=== PATIENT | male | born 1990 | race African-American/Black ===

== ENCOUNTER 2021-02-22 08:36 | Emergency (ER) | payer OTHER ==
[~2021-02-22] VITALS: Ht 162.6 cm; Wt 75.5 kg
[2021-02-22] MEDS ORDERED: IBUP-1022 PO (09:36)
[2021-02-22] MEDS ORDERED: CETI10CA2 PO (09:36)
[2021-02-22] MEDS ORDERED: ACETAMINOPHEN 500 MG TAB PO ONE (09:55)
--- NOTE | 2021-02-22 10:50 | REP ---
INDICATION: LT BREAST, R/O ABSCESS 2 O CLOCK. COMPARISON: None TECHNIQUE: Real-time sonographic evaluation of left breast performed. FINDINGS: In the left retroareolar region there is ill-defined heterogeneous echotexture with some degree of hyperemia with Doppler evaluation. This is likely due to inflammatory change and/or gynecomastia in this region. No abscess collection is seen. IMPRESSION: BIRADS/ACR category 3, probably benign. Ill-defined hyperemic retroareolar tissue likely indicates inflammatory change and/or gynecomastia. No abscess collection is seen. RECOMMENDATION: Clinical correlation and follow-up recommended. If there is clinical concern for underlying left breast mass, recommend follow-up left breast mammogram and ultrasound. <Electronically signed by Michael Clark > 02/22/21 [id number]
[2021-02-22 11:15] VITALS: BP 122/82
--- NOTE | 2021-02-22 14:51 | ED PDOC ---
Post-Departure Follow-Up breast us faxed lolly moura, maggy ruiz for fu Zoraida Dumont MD Feb 22, 2021 14:51
== END 2021-02-22 11:17 | disposition home or self-care (01) ==
LOC: M ED 08:36
DX: N64.89 Other specified disorders of breast (principal); D75.A Glucose-6-phosphate dehydrogenase (G6PD) deficiency without anemia

== ENCOUNTER 2021-05-07 12:32 | Emergency (ER) | payer OTHER ==
[~2021-05-07] VITALS: Ht 162.6 cm; Wt 75.0 kg
[~2021-05-07 12:32] MED LIST: CETI10CA2 PO; IBUP-1022 PO
[2021-05-07] MEDS ORDERED: NS 1,000 ML IV ONE (13:55)
[2021-05-07] MEDS ORDERED: ACETAMINOPHEN 500 MG TAB PO ONE (13:55)
[2021-05-07] MEDS ORDERED: METOCLOPRAMIDE INJ 10MG/2ML VIAL (J2765 PER 1) IV ONE (13:55)
--- NOTE | 2021-05-07 14:26 | REP ---
INDICATION: intermittent HESTER, dizziness, x 5 days. COMPARISON: None. TECHNIQUE: 5 x 5 mm contiguous helical transaxial sections were obtained from the skull base to the cerebral convexities with coronal reconstruction FINDINGS: The ventricles and sulci are consistent with the patient's age. There are no extra-axial fluid collections. There is no mass effect. In the region of the putamen on the right there is a 1 cm sized focal area of increased density. The deep white matter is otherwise unremarkable. The orbital and petrous structures, cerebellopontine angles, and posterior fossa are unremarkable. The sella turcica, cavernous, and paracavernous structures are essentially unremarkable. The visualized portions of the paranasal sinuses and mastoid air cells are clear. Images of the skull base show no gross abnormality. IMPRESSION: Area of increased parenchymal density in the putamen on the right as described above. The finding is suspicious for an intracranial hemorrhage. Follow-up with MRI is recommended. Phone call was placed to the emergency department in this finding was discussed with Dr. Castellon. <Electronically signed by Denver Fisher > 05/07/21 [id number]
[2021-05-07 15:08] LABS: HEMATOCRIT 43.5 % (42.0-52.0); HEMOGLOBIN 13.6 g/dl (13.5-17.5); MEAN CORPUSCULAR HEMOGLOBIN 27.9 pg (27.0-33.0); MEAN CORPUSCULAR HGB CONC 31.3 g/dl (32.0-36.5); MEAN CORPUSCULAR VOLUME 89.1 fl (80.0-96.0); PLATELET COUNT, AUTOMATED 223 10^3/uL (150-450); RED BLOOD COUNT 4.88 10^6/uL (4.30-6.10); WHITE BLOOD COUNT 4.3 10^3/uL (4.0-10.0)
[2021-05-07 15:22] LABS: INR 1.06; PROTHROMBIN TIME 14.2 SECONDS (12.7-14.5)
[2021-05-07 15:23] LABS: PARTIAL THROMBOPLASTIN TIME 29.5 SECONDS (25.9-37.0)
[2021-05-07 15:26] LABS: BLOOD UREA NITROGEN 10 MG/DL (7-18); CALCIUM LEVEL 8.9 MG/DL (8.5-10.1); CARBON DIOXIDE LEVEL 26 MEQ/L (21-32); CHLORIDE LEVEL 107 MEQ/L (98-107); CREATININE FOR GFR 1.25 MG/DL (0.70-1.30); GLOMERULAR FILTRATION RATE > 60.0 (>60); GLUCOSE, FASTING 86 MG/DL (70-100); POTASSIUM SERUM 3.8 MEQ/L (3.5-5.1); SODIUM LEVEL 138 MEQ/L (136-145)
[2021-05-07 16:01] LABS: RSV AMPLIFICATION NEGATIVE (NEGATIVE)
[2021-05-07 16:57] VITALS: BP 103/53
== END 2021-05-07 17:00 | disposition short-term general hospital (02) ==
LOC: M ED 12:32
DX: R51.9 Headache, unspecified (principal); D75.A Glucose-6-phosphate dehydrogenase (G6PD) deficiency without anemia; Z86.69 Personal history of other diseases of the nervous system and sense organs
CPT/HCPCS: 70450; 80048; 85027; 85610; 85730; 86140; 86850; 86900; 86901; 87631; 96361; 96374; 99284; J2765

== ENCOUNTER 2021-05-11 14:33 | Emergency (ER) | payer OTHER ==
[~2021-05-11] VITALS: Ht 162.6 cm; Wt 75.2 kg
[2021-05-11] MEDS ORDERED: BUTA-198 (14:43)
[2021-05-11] MEDS ORDERED: PRED10TA2 (14:43)
[2021-05-11] MEDS ORDERED: GI COCKTAIL 50ML BTL(HYOSCYAMINE/MAALOX/LIDOCAINE VISCOUS)(1:3:1) PO ONE (17:30)
[2021-05-11] MEDS ORDERED: OMEPRAZOLE 20 MG CAP PO ONE (17:30)
[2021-05-11] MEDS ORDERED: BACLOFEN 10 MG TAB PO ONE (18:00)
[2021-05-11] MEDS ORDERED: OMEP40CA4 PO ×2 (18:04→18:15)
[2021-05-11] MEDS ORDERED: CARA1TAB6 PO ×2 (18:04→18:15)
[2021-05-11] MEDS ORDERED: BACL10TA2 PO ×2 (18:04→18:15)
[2021-05-11] MEDS ORDERED: diphenhydrAMINE 25MG CAP PO ONE (18:15)
[2021-05-11 18:17] VITALS: BP 118/65
== END 2021-05-11 18:20 | disposition home or self-care (01) ==
LOC: M ED 14:33
DX: R06.6 Hiccough (principal); D75.A Glucose-6-phosphate dehydrogenase (G6PD) deficiency without anemia; Z86.69 Personal history of other diseases of the nervous system and sense organs

== ENCOUNTER 2021-05-30 13:47 | Emergency (ER) | payer OTHER ==
[~2021-05-30] VITALS: Ht 162.6 cm; Wt 75.6 kg
[2021-05-30 13:47] VITALS: BP 120/76
[~2021-05-30 13:47] MED LIST changes: +BACL10TA2 PO; +BUTA-198; +CARA1TAB6 PO; +OMEP40CA4 PO; +PRED10TA2
--- NOTE | 2021-05-30 15:32 | REP ---
INDICATION: NEURO. COMPARISON: 05/07/2021. TECHNIQUE: CT brain performed in the axial plane. Coronal reconstruction images are performed. FINDINGS: The ventricles are normal in size and position.. There is no midline shift or mass effect. Clark-white differentiation is well maintained. Once again there is mild hyperdensity in the right basal ganglia region. This is stable when compared to the prior study. This most likely represents mild basal ganglia calcification. No other abnormal density is seen. There is no extra-axial fluid collection. Bony calvarium is intact. There is mild mucosal thickening in the posterior left ethmoid sinuses. IMPRESSION: Mild hyperdensity in the right basal ganglia is stable compared to the prior CT of 05/07/2021. the findings are therefore most consistent with mild basal ganglia calcification. No acute findings are seen. There is mild mucosal thickening in the posterior left ethmoid sinuses. <Electronically signed by Michael Clark > 05/30/21 [id number]
[2021-05-30] MEDS ORDERED: AMIT25TA17 PO (19:36)
== END 2021-05-30 19:45 | disposition home or self-care (01) ==
LOC: M ED 13:47
DX: R51.9 Headache, unspecified (principal); H57.12 Ocular pain, left eye; Z79.899 Other long term (current) drug therapy; Z88.8 Allergy status to other drugs, medicaments and biological substances

== ENCOUNTER 2021-06-28 06:26 | Emergency (ER) | payer OTHER ==
[~2021-06-28] VITALS: Ht 162.6 cm; Wt 76.4 kg
[~2021-06-28 06:26] MED LIST changes: +AMIT25TA17 PO
[2021-06-28] MEDS ORDERED: TOPA50TA8 PO (06:32)
[2021-06-28] MEDS ORDERED: RIZA10TA58 PO (06:32)
[2021-06-28] MEDS ORDERED: ACETAMINOPHEN 500 MG TAB PO ONE (10:20)
[2021-06-28] MEDS ORDERED: NS 1,000 ML IV ONE (10:20)
[2021-06-28] MEDS ORDERED: METOCLOPRAMIDE INJ 10MG/2ML VIAL (J2765 PER 1) IV ONE (10:20)
--- NOTE | 2021-06-28 10:42 | REP ---
INDICATION: sev L sided parietal pain, dizziness, vision changes. COMPARISON: Comparison CT studies are reviewed from May 30, 2021 and May 07, 2021. TECHNIQUE: Helical scanning is acquired. 5 mm axial images were reformatted. Coronal MPR images were generated. FINDINGS: Preliminary digital manager business continuity radiograph is unremarkable. Bone window settings demonstrate intact bony calvarium. Visualized paranasal sinuses are clear. No intraorbital abnormality is appreciated. Lateral, 3rd, and 4th ventricles are normal in size and position. There is no evidence of intracranial hemorrhage, infarct, mass or midline shift. There is mild increased density pattern in the basal ganglia bilaterally consistent with physiologic calcification. This is unchanged from the May 07, 2021 study. IMPRESSION: Negative noncontrast head CT. <Electronically signed by Tomas Rodriguez > 06/28/21 [id number]
[2021-06-28 10:53] LABS: BASO % 0.5 % (0.0-1.0); EOS % 0.7 % (0.0-3.0); HEMATOCRIT 45.2 % (42.0-52.0); HEMOGLOBIN 14.7 g/dl (13.5-17.5); LYMPH # 1.9 10^3/uL (1.5-5.0); LYMPH % 43.4 % (24.0-44.0); MEAN CORPUSCULAR HGB CONC 32.5 g/dl (32.0-36.5); MEAN CORPUSCULAR VOLUME 86.1 fl (80.0-96.0); MONO # 0.4 10^3/uL (0.0-0.8); MONO % 9.3 % (2.0-8.0); NEUTROPHILS % 45.9 % (36.0-66.0); PLATELET COUNT, AUTOMATED 229 10^3/uL (150-450); RED BLOOD COUNT 5.25 10^6/uL (4.30-6.10); WHITE BLOOD COUNT 4.4 10^3/uL (4.0-10.0)
[2021-06-28 11:13] LABS: INR 0.98; PROTHROMBIN TIME 13.4 SECONDS (12.7-14.5)
[2021-06-28 11:36] LABS: BLOOD UREA NITROGEN 16 MG/DL (7-18); CALCIUM LEVEL 9.6 MG/DL (8.5-10.1); CARBON DIOXIDE LEVEL 25 MEQ/L (21-32); CHLORIDE LEVEL 106 MEQ/L (98-107); CREATININE FOR GFR 1.39 MG/DL (0.70-1.30); GLOMERULAR FILTRATION RATE > 60.0 (>60); GLUCOSE, FASTING 94 MG/DL (70-100); POTASSIUM SERUM 5.3 MEQ/L (3.5-5.1); SODIUM LEVEL 137 MEQ/L (136-145)
[2021-06-28 12:20] VITALS: BP 158/69
== END 2021-06-28 12:36 | disposition home or self-care (01) ==
LOC: M ED 06:26
DX: G43.909 Migraine, unspecified, not intractable, without status migrainosus (principal); D55.0 Anemia due to glucose-6-phosphate dehydrogenase [G6PD] deficiency; Z86.69 Personal history of other diseases of the nervous system and sense organs; Z86.73 Personal history of transient ischemic attack (TIA), and cerebral infarction without residual deficits
CPT/HCPCS: 70450; 80047; 80048; 85025; 85610; 85730; 96361; 96374; 99284; J2765

== ENCOUNTER 2021-11-07 20:12 | Emergency (ER) | payer OTHER ==
[~2021-11-07] VITALS: Ht 162.6 cm; Wt 81.7 kg
[~2021-11-07 20:12] MED LIST changes: +GABAPENTIN PO; +HYDR-3363 PO; +LEXA1TAB2 PO; +MAXA10TA14 PO; +MECL-86 PO; +OLAN1TAB16 PO; +RAME8TAB2 PO; +RIZA10TA58 PO; +RIZA5TAB2 PO; +TOPA50TA8 PO; +TOPI50TA9 PO; +TRAZ-252 PO
[2021-11-07 20:13] VITALS: BP 125/69
[2021-11-07] MEDS ORDERED: ACETAMINOPHEN 325 MG TAB PO ONE (20:45)
[2021-11-07] MEDS ORDERED: KETOROLAC 60MG 2ML VIAL IM ONE (20:45)
[2021-11-07] MEDS ORDERED: MEDR4PAK PO (21:06)
== END 2021-11-07 21:12 | disposition home or self-care (01) ==
LOC: M ED 20:12
DX: S39.012A Strain of muscle, fascia and tendon of lower back, initial encounter (principal); X58.XXXA Exposure to other specified factors, initial encounter; Y92.89 Other specified places as the place of occurrence of the external cause; M54.42 Lumbago with sciatica, left side; D75.A Glucose-6-phosphate dehydrogenase (G6PD) deficiency without anemia; Z79.899 Other long term (current) drug therapy
CPT/HCPCS: 96372; 99282; J1885

== ENCOUNTER 2021-11-21 05:34 | Emergency (ER) | payer OTHER ==
[~2021-11-21] VITALS: Ht 162.6 cm; Wt 79.5 kg
[~2021-11-21 05:34] MED LIST changes: +MEDR4PAK PO
[2021-11-21] MEDS ORDERED: CETI-24 (06:25)
[2021-11-21] MEDS ORDERED: ACETAMINOPHEN 325 MG TAB PO ONE ×2 (06:25→06:55)
[2021-11-21] MEDS ORDERED: PHENAZOPYRIDINE 100 MG TAB PO ONE (06:25)
[2021-11-21] MEDS ORDERED: HYDR-4570 (06:25)
[2021-11-21] MEDS ORDERED: SILD100T (06:25)
[2021-11-21 06:47] LABS: APPEARANCE, URINE HAZY (CLEAR); BACTERIA, URINE AUTO NEGATIVE (NEGATIVE); BILIRUBIN, URINE AUTO NEGATIVE (NEGATIVE); BLOOD, URINE BLOOD 2+ (NEGATIVE); COLOR, URINE YELLOW (YELLOW); GLUCOSE, URINE (UA) AUTO NEGATIVE (NEGATIVE); KETONE, URINE AUTO NEGATIVE (NEGATIVE); LEUKOCYTE ESTERASE, URINE AUTO NEGATIVE (NEGATIVE); MUCUS, URINE SMALL (NEGATIVE); NITRITE, URINE AUTO NEGATIVE (NEGATIVE); PROTEIN, URINE AUTO 3+ mg/dL (NEGATIVE); RBC, URINE AUTO 127 /HPF (0-3); SPECIFIC GRAVITY URINE AUTO 1.019 (1.002-1.035); SQUAMOUS EPITHELIAL CELL UR AU 1 /HPF (0-6); TRANSITIONAL EPITHELIAL AUTO 4 /HPF; UROBILINOGEN, URINE AUTO 0.2 mg/dL (0.0-2.0); WBC, URINE AUTO 12 /HPF (0-3)
[2021-11-21] MEDS ORDERED: NS 500 ML IV ONE (07:00)
[2021-11-21 07:44] LABS: BASO % 0.4 % (0.0-1.0); EOS % 0.9 % (0.0-3.0); HEMATOCRIT 43.4 % (42.0-52.0); HEMOGLOBIN 13.6 g/dl (13.5-17.5); LYMPH # 1.6 10^3/uL (1.5-5.0); LYMPH % 35.6 % (24.0-44.0); MEAN CORPUSCULAR HEMOGLOBIN 27.6 pg (27.0-33.0); MEAN CORPUSCULAR HGB CONC 31.3 g/dl (32.0-36.5); MEAN CORPUSCULAR VOLUME 88.2 fl (80.0-96.0); MONO # 0.5 10^3/uL (0.0-0.8); MONO % 11.6 % (2.0-8.0); NEUTROPHILS # 2.3 10^3/uL (1.5-8.5); NEUTROPHILS % 50.8 % (36.0-66.0); PLATELET COUNT, AUTOMATED 248 10^3/uL (150-450); RED BLOOD COUNT 4.92 10^6/uL (4.30-6.10); WHITE BLOOD COUNT 4.5 10^3/uL (4.0-10.0)
[2021-11-21 09:15] LABS: GC DNA AMPLIFICATION NEGATIVE (NEGATIVE)
[2021-11-21] MEDS ORDERED: CEPH500C PO (09:22)
[2021-11-21] MEDS ORDERED: CEPHALEXIN 500 MG CAP PO ONE (09:30)
[2021-11-21 09:37] LABS: BILIRUBIN,DIRECT 0.1 MG/DL (0.0-0.2); BILIRUBIN,TOTAL 0.6 MG/DL (0.2-1.0); TOTAL PROTEIN 7.8 GM/DL (6.4-8.2)
[2021-11-21 09:50] VITALS: BP 115/68
== END 2021-11-21 09:50 | disposition home or self-care (01) ==
LOC: M ED 05:34
DX: N39.0 Urinary tract infection, site not specified (principal); F41.9 Anxiety disorder, unspecified; D75.A Glucose-6-phosphate dehydrogenase (G6PD) deficiency without anemia; Z86.69 Personal history of other diseases of the nervous system and sense organs; Z79.899 Other long term (current) drug therapy

== ENCOUNTER 2021-11-26 18:31 | Emergency (ER) | payer OTHER ==
[~2021-11-26] VITALS: Ht 162.6 cm; Wt 81.2 kg
[~2021-11-26 18:31] MED LIST changes: +CEPH500C PO; +CETI-24; +HYDR-4570; +SILD100T
[2021-11-26] MEDS ORDERED: SUMA100T2 PO (18:38)
[2021-11-26 21:34] LABS: BASO % 0.3 % (0.0-1.0); EOS # 0.1 10^3/uL (0.0-0.5); EOS % 0.8 % (0.0-3.0); HEMATOCRIT 40.1 % (42.0-52.0); HEMOGLOBIN 12.7 g/dl (13.5-17.5); LYMPH # 1.8 10^3/uL (1.5-5.0); LYMPH % 24.8 % (24.0-44.0); MEAN CORPUSCULAR HEMOGLOBIN 27.5 pg (27.0-33.0); MEAN CORPUSCULAR HGB CONC 31.7 g/dl (32.0-36.5); MONO # 0.6 10^3/uL (0.0-0.8); MONO % 7.8 % (2.0-8.0); NEUTROPHILS # 4.7 10^3/uL (1.5-8.5); NEUTROPHILS % 65.9 % (36.0-66.0); PLATELET COUNT, AUTOMATED 251 10^3/uL (150-450); RED BLOOD COUNT 4.61 10^6/uL (4.30-6.10); WHITE BLOOD COUNT 7.1 10^3/uL (4.0-10.0)
[2021-11-26 21:53] LABS: ERYTHROCYTE SEDIMENTATION RATE 6 mm/hr (0-15)
[2021-11-26] MEDS ORDERED: NS 1,000 ML IV ONE (22:05)
[2021-11-26] MEDS ORDERED: diphenhydrAMINE 50MG/ML VIAL (J1200) IV ONE (22:05)
[2021-11-26] MEDS ORDERED: ACETAMINOPHEN 500 MG TAB PO ONE (22:05)
[2021-11-26 22:22] LABS: BLOOD UREA NITROGEN 12 MG/DL (7-18); CALCIUM LEVEL 8.9 MG/DL (8.5-10.1); CARBON DIOXIDE LEVEL 27 MEQ/L (21-32); CHLORIDE LEVEL 108 MEQ/L (98-107); CREATININE FOR GFR 1.16 MG/DL (0.70-1.30); GLOMERULAR FILTRATION RATE > 60.0 (>60); GLUCOSE, FASTING 98 MG/DL (70-100); POTASSIUM SERUM 4.3 MEQ/L (3.5-5.1); SODIUM LEVEL 138 MEQ/L (136-145)
[2021-11-27 01:13] VITALS: BP 115/58
== END 2021-11-27 01:15 | disposition home or self-care (01) ==
LOC: M ED 18:31
DX: G43.909 Migraine, unspecified, not intractable, without status migrainosus (principal); G89.29 Other chronic pain; M54.9 Dorsalgia, unspecified; M25.552 Pain in left hip; D75.A Glucose-6-phosphate dehydrogenase (G6PD) deficiency without anemia; Z86.69 Personal history of other diseases of the nervous system and sense organs; Z79.899 Other long term (current) drug therapy
CPT/HCPCS: 70450; 73502; 80048; 85025; 85652; 86140; 96361; 96374; 99284; J1200

== ENCOUNTER 2021-12-15 01:38 | Emergency (ER) | payer OTHER ==
[~2021-12-15] VITALS: Ht 162.6 cm; Wt 79.5 kg
[~2021-12-15 01:38] MED LIST changes: +SUMA100T2 PO
[2021-12-15] MEDS ORDERED: ACETAMINOPHEN 500 MG TAB PO ONE (06:00)
[2021-12-15] MEDS ORDERED: diphenhydrAMINE 50MG/ML VIAL (J1200) IV ONE (06:00)
[2021-12-15] MEDS ORDERED: NS 1,000 ML IV ONE (06:00)
[2021-12-15 06:17] LABS: RSV AMPLIFICATION NEGATIVE (NEGATIVE)
[2021-12-15 06:25] LABS: HEMATOCRIT 39.9 % (42.0-52.0); HEMOGLOBIN 12.8 g/dl (13.5-17.5); MEAN CORPUSCULAR HGB CONC 32.1 g/dl (32.0-36.5); MEAN CORPUSCULAR VOLUME 87.3 fl (80.0-96.0); PLATELET COUNT, AUTOMATED 263 10^3/uL (150-450); RED BLOOD COUNT 4.57 10^6/uL (4.30-6.10); WHITE BLOOD COUNT 4.5 10^3/uL (4.0-10.0)
[2021-12-15 07:23] VITALS: BP 112/74
== END 2021-12-15 07:36 | disposition home or self-care (01) ==
LOC: M ED 01:38
DX: G89.29 Other chronic pain (principal); M54.50 Low back pain, unspecified; R51.9 Headache, unspecified; J02.9 Acute pharyngitis, unspecified; D75.A Glucose-6-phosphate dehydrogenase (G6PD) deficiency without anemia; N52.9 Male erectile dysfunction, unspecified; Z86.69 Personal history of other diseases of the nervous system and sense organs; Z86.73 Personal history of transient ischemic attack (TIA), and cerebral infarction without residual deficits; Z79.899 Other long term (current) drug therapy
CPT/HCPCS: 80047; 85027; 87631; 96374; 99283; J1200

== ENCOUNTER 2022-01-28 14:59 | Emergency (ER) | payer OTHER ==
[~2022-01-28] VITALS: Ht 162.6 cm; Wt 79.5 kg
[2022-01-28] MEDS ORDERED: OMEP40CA5 (15:28)
[2022-01-28] MEDS ORDERED: GABA-1171 (15:28)
[2022-01-28] MEDS ORDERED: TOPI100T9 (15:28)
[2022-01-28] MEDS ORDERED: PROP10TA56 (15:28)
[2022-01-28] MEDS ORDERED: OLAN1TAB20 (15:28)
[2022-01-28] MEDS ORDERED: KETOROLAC 60MG 2ML VIAL IM ONE (20:45)
[2022-01-28 21:16] VITALS: BP 124/67
== END 2022-01-28 21:59 | disposition home or self-care (01) ==
LOC: M ED 14:59
DX: M54.50 Low back pain, unspecified (principal); I10 Essential (primary) hypertension; K21.9 Gastro-esophageal reflux disease without esophagitis; Z86.69 Personal history of other diseases of the nervous system and sense organs; D75.A Glucose-6-phosphate dehydrogenase (G6PD) deficiency without anemia; Z79.899 Other long term (current) drug therapy
CPT/HCPCS: 96372; 99283; J1885

== ENCOUNTER → 2022-01-31 | Outpatient (REF) | payer OTHER ==
[~2022-01-31] MED LIST changes: +BACT800T5 PO; +GABA-1171; +HYDR-3713 PO; +OLAN1TAB20; +OMEP40CA5; +PROP10TA56; +TOPI100T9
[2022-01-31 17:47] LABS: APPEARANCE, URINE CLEAR (CLEAR); BACTERIA, URINE AUTO NEGATIVE (NEGATIVE); BILIRUBIN, URINE AUTO NEGATIVE (NEGATIVE); BLOOD, URINE BLOOD NEGATIVE (NEGATIVE); COLOR, URINE YELLOW (YELLOW); GLUCOSE, URINE (UA) AUTO NEGATIVE (NEGATIVE); KETONE, URINE AUTO NEGATIVE (NEGATIVE); LEUKOCYTE ESTERASE, URINE AUTO NEGATIVE (NEGATIVE); MUCUS, URINE SMALL (NEGATIVE); NITRITE, URINE AUTO NEGATIVE (NEGATIVE); PROTEIN, URINE AUTO NEGATIVE (NEGATIVE); RBC, URINE AUTO 0 /HPF (0-3); SQUAMOUS EPITHELIAL CELL UR AU 0 /HPF (0-6); UROBILINOGEN, URINE AUTO 0.2 mg/dL (0.0-2.0); WBC, URINE AUTO 0 /HPF (0-3)
== END ==
LOC: M SMT 16:44
PROVIDERS: ATTEND Nurse Practitioner Women's Health
DX: R30.0 Dysuria (principal)

== ENCOUNTER → 2022-02-06 | Outpatient (CLI) | payer OTHER ==
[2022-02-06 17:27] LABS: HEMATOCRIT 42.5 % (42.0-52.0); HEMOGLOBIN 13.5 g/dl (13.5-17.5); MEAN CORPUSCULAR HGB CONC 31.8 g/dl (32.0-36.5); MEAN CORPUSCULAR VOLUME 88.2 fl (80.0-96.0); PLATELET COUNT, AUTOMATED 211 10^3/uL (150-450); RED BLOOD COUNT 4.82 10^6/uL (4.30-6.10); WHITE BLOOD COUNT 4.2 10^3/uL (4.0-10.0)
[2022-02-06 17:36] LABS: INR 0.99; PROTHROMBIN TIME 13.5 SECONDS (12.7-14.5)
[2022-02-06 17:37] LABS: PARTIAL THROMBOPLASTIN TIME 27.4 SECONDS (25.9-37.0)
[2022-02-06 17:53] LABS: BLOOD UREA NITROGEN 11 MG/DL (7-18); CALCIUM LEVEL 9.4 MG/DL (8.5-10.1); CARBON DIOXIDE LEVEL 27 MEQ/L (21-32); CHLORIDE LEVEL 106 MEQ/L (98-107); CREATININE FOR GFR 1.17 MG/DL (0.70-1.30); GLOMERULAR FILTRATION RATE > 60.0 (>60); GLUCOSE, FASTING 88 MG/DL (70-100); POTASSIUM SERUM 4.5 MEQ/L (3.5-5.1); SODIUM LEVEL 137 MEQ/L (136-145)
== END ==
LOC: M LAB 16:52
PROVIDERS: ATTEND Nurse Practitioner Women's Health
DX: Z01.818 Encounter for other preprocedural examination (principal); N48.1 Balanitis

== ENCOUNTER 2022-02-07 08:31 | Day surgery (SDC) | payer OTHER ==
[~2022-02-07] VITALS: Ht 162.6 cm; Wt 80.3 kg
[~2022-02-07 08:31] MED LIST changes: -BACT800T5 PO; -HYDR-3713 PO; +ceFAZolin SOD 2 GM in IV 1 EA IV ONE
[2022-02-07] MEDS ORDERED: MIDAZOLAM INJ 2MG/2ML VIAL (J2250 PER 1MG) As Ordered ONE (10:06)
[2022-02-07] MEDS ORDERED: fentaNYL 100 MCG/2 ML INJECTION As Ordered ONE ×2 (10:06→11:46)
[2022-02-07] MEDS ORDERED: LIDOCAINE 2% 100MG/5ML SDV (FOR ANES.) As Ordered ONE (10:07)
[2022-02-07] MEDS ORDERED: ONDANSETRON 4MG/2ML VIAL As Ordered ONE (10:07)
[2022-02-07] MEDS ORDERED: dexameTHASONE 4 MG/ML 1ML VIAL (J1100 PER 1MG) As Ordered ONE (10:07)
[2022-02-07] MEDS ORDERED: propofoL 200 MG/20 ML VIAL As Ordered ONE (10:07)
[2022-02-07] MEDS ORDERED: LIDOCAINE 1% SDV 30ML VIAL As Ordered ONE (11:11)
[2022-02-07] MEDS ORDERED: ACETAMINOPHEN 1000MG 100ML IV BTL (OFIRMEV) (J0131 PER 10MG) As Ordered ONE (11:34)
[2022-02-07] MEDS ORDERED: BACT800T5 PO (12:18)
[2022-02-07] MEDS ORDERED: HYDR-3713 PO (12:18)
[2022-02-07] MEDS ORDERED: HYDROMORPHONE HCL 0.5 MG/ 0.5 ML SYRINGE (J1170 PER 1) IV PRN (12:25)
[2022-02-07] MEDS ORDERED: ONDANSETRON 4MG/2ML VIAL IV PRN (12:25)
[2022-02-07] MEDS ORDERED: LR 1,000 ML IV SCH (12:25)
[2022-02-07] MEDS ORDERED: fentaNYL 100 MCG/2 ML INJECTION IV PRN (12:25)
[2022-02-07] MEDS ORDERED: METOCLOPRAMIDE INJ 10MG/2ML VIAL (J2765 PER 1) IV PRN (12:25)
[2022-02-07] MEDS ORDERED: oxyCODONE 5MG TAB PO PRN (12:25)
[2022-02-07 13:10] VITALS: BP 121/81
== END 2022-02-07 13:47 | disposition home or self-care (01) ==
LOC: M SDC 08:31
PROVIDERS: ATTEND Urology
DX: N47.7 Other inflammatory diseases of prepuce (principal); N48.1 Balanitis; N52.9 Male erectile dysfunction, unspecified; K21.9 Gastro-esophageal reflux disease without esophagitis; F32.A Depression, unspecified; G43.909 Migraine, unspecified, not intractable, without status migrainosus; Z79.899 Other long term (current) drug therapy
CPT/HCPCS: 54161; 88304; J0131; J0690; J1100; J2250; J2405; J3010

== ENCOUNTER → 2022-02-26 | Outpatient (REF) ==
[~2022-02-26] MED LIST changes: +BACT800T5 PO; +HYDR-3713 PO; -ceFAZolin SOD 2 GM in IV 1 EA IV ONE
== END ==
LOC: M PLAIMG 15:09
PROVIDERS: ATTEND Internal Medicine
DX: R06.02 Shortness of breath (principal); R52 Pain, unspecified

== ENCOUNTER → 2022-03-13 | Outpatient (CLI) | payer OTHER ==
[2022-03-13 18:10] LABS: PLATELET COUNT, AUTOMATED 249 10^3/uL (150-450)
[2022-03-13 18:21] LABS: INR 0.94
[2022-03-13 18:22] LABS: PARTIAL THROMBOPLASTIN TIME 30.3 SECONDS (25.9-37.0)
[2022-03-13 18:27] LABS: HCG, SERUM QUALITATIVE NEGATIVE
== END ==
LOC: M LAB 17:10
PROVIDERS: ATTEND Physical Medicine & Rehabilitation
DX: M51.16 Intervertebral disc disorders with radiculopathy, lumbar region (principal)

== ENCOUNTER 2022-03-25 13:39 | Emergency (ER) | payer OTHER ==
[~2022-03-25] VITALS: Ht 162.6 cm; Wt 81.8 kg
[2022-03-25] MEDS ORDERED: ACETAMINOPHEN 325 MG TAB PO ONE (15:35)
[2022-03-25] MEDS ORDERED: NIRM1TAB PO (15:43)
[2022-03-25 15:53] VITALS: O2SAT 99
[2022-03-25 15:54] VITALS: BP 114/68
== END 2022-03-25 16:05 | disposition home or self-care (01) ==
LOC: M ED 13:39
DX: U07.1 COVID-19 (principal); R50.9 Fever, unspecified; R51.9 Headache, unspecified; J02.9 Acute pharyngitis, unspecified; I10 Essential (primary) hypertension; G89.29 Other chronic pain; D75.A Glucose-6-phosphate dehydrogenase (G6PD) deficiency without anemia; Z79.899 Other long term (current) drug therapy

== ENCOUNTER 2022-03-29 16:07 | Emergency (ER) | payer OTHER ==
[~2022-03-29] VITALS: Ht 162.6 cm; Wt 80.0 kg
[~2022-03-29 16:07] MED LIST changes: +NIRM1TAB PO
[2022-03-29 16:09] VITALS: BP 110/71
[2022-03-29] MEDS ORDERED: ONDANSETRON 4MG ORAL DISINTEGRATING TAB PO ONE (17:50)
[2022-03-29] MEDS ORDERED: ONDA4TAB6 PO (17:53)
== END 2022-03-29 18:08 | disposition home or self-care (01) ==
LOC: M ED 16:07
DX: U07.1 COVID-19 (principal); R43.2 Parageusia; I10 Essential (primary) hypertension; F33.9 Major depressive disorder, recurrent, unspecified; D75.A Glucose-6-phosphate dehydrogenase (G6PD) deficiency without anemia; G47.33 Obstructive sleep apnea (adult) (pediatric); K21.9 Gastro-esophageal reflux disease without esophagitis; Z86.69 Personal history of other diseases of the nervous system and sense organs; Z86.73 Personal history of transient ischemic attack (TIA), and cerebral infarction without residual deficits; Z79.899 Other long term (current) drug therapy

== ENCOUNTER → 2022-07-09 | Outpatient (CLI) | payer OTHER ==
[~2022-07-09] MED LIST changes: -MAXA10TA14 PO; +ONDA4TAB6 PO; +RIZA10TA64 PO
== END ==
LOC: M PAIN 08:15
PROVIDERS: ATTEND Nurse Practitioner Family
DX: M79.10 Myalgia, unspecified site (principal); G89.29 Other chronic pain; G43.909 Migraine, unspecified, not intractable, without status migrainosus; I10 Essential (primary) hypertension; G47.30 Sleep apnea, unspecified; Z86.59 Personal history of other mental and behavioral disorders; Z88.2 Allergy status to sulfonamides; Z88.6 Allergy status to analgesic agent; Z79.899 Other long term (current) drug therapy

== ENCOUNTER → 2022-09-30 | Outpatient (CLI) | payer OTHER | LOC: M LABSMTC 11:59 | PROVIDERS: ATTEND Anesthesiology | DX: Z01.812 Encounter for preprocedural laboratory examination (principal); Z20.822 Contact with and (suspected) exposure to COVID-19 ==

== ENCOUNTER → 2022-10-04 | Outpatient (CLI) | payer OTHER ==
[~2022-10-04] MED LIST changes: +BUPIVACAINE HCL 0.25% 10ML VIAL As Ordered ONE; +BUPIVACAINE HCL 0.25% 30ML VIAL As Ordered ONE; +NORCO, ANEXSIA 5/325MG TABLET (HYDROcodone/ACETAMINOPHEN) As Ordered ONE; +TRIAMCINOLONE ACETONIDE SUSP 40MG/ML 1ML VIAL As Ordered ONE; +diazePAM 5MG TABLET As Ordered ONE
== END ==
LOC: M PAIN 08:15
PROVIDERS: ATTEND Anesthesiology
DX: M79.18 Myalgia, other site (principal); K21.9 Gastro-esophageal reflux disease without esophagitis; N52.9 Male erectile dysfunction, unspecified; M72.2 Plantar fascial fibromatosis; F32.A Depression, unspecified; F41.9 Anxiety disorder, unspecified; D64.9 Anemia, unspecified; G47.30 Sleep apnea, unspecified; Z79.899 Other long term (current) drug therapy; Z88.2 Allergy status to sulfonamides; Z88.6 Allergy status to analgesic agent

== ENCOUNTER → 2022-10-18 | Outpatient (CLI) | payer OTHER ==
[~2022-10-18] MED LIST changes: -BUPIVACAINE HCL 0.25% 10ML VIAL As Ordered ONE; -BUPIVACAINE HCL 0.25% 30ML VIAL As Ordered ONE; -NORCO, ANEXSIA 5/325MG TABLET (HYDROcodone/ACETAMINOPHEN) As Ordered ONE; -TRIAMCINOLONE ACETONIDE SUSP 40MG/ML 1ML VIAL As Ordered ONE; -diazePAM 5MG TABLET As Ordered ONE
== END ==
LOC: M PAIN 14:45
PROVIDERS: ATTEND Nurse Practitioner Family
DX: M79.10 Myalgia, unspecified site (principal); G89.29 Other chronic pain; G47.30 Sleep apnea, unspecified; K21.9 Gastro-esophageal reflux disease without esophagitis; G43.909 Migraine, unspecified, not intractable, without status migrainosus; I10 Essential (primary) hypertension; Z86.59 Personal history of other mental and behavioral disorders; Z88.2 Allergy status to sulfonamides; Z88.6 Allergy status to analgesic agent; Z79.899 Other long term (current) drug therapy

== ENCOUNTER → 2023-01-15 | Outpatient (CLI) | payer OTHER ==
[~2023-01-15] MED LIST changes: +TOPI-254 PO; -TOPI50TA9 PO
== END ==
LOC: M PAIN 12:45
PROVIDERS: ATTEND Anesthesiology
DX: M47.816 Spondylosis without myelopathy or radiculopathy, lumbar region (principal); G89.29 Other chronic pain; K21.9 Gastro-esophageal reflux disease without esophagitis; I10 Essential (primary) hypertension; G47.30 Sleep apnea, unspecified; Z86.59 Personal history of other mental and behavioral disorders; Z88.2 Allergy status to sulfonamides; Z88.6 Allergy status to analgesic agent; Z79.899 Other long term (current) drug therapy

== ENCOUNTER → 2023-02-27 | Outpatient (CLI) | payer OTHER ==
[~2023-02-27] MED LIST changes: +BUPIVACAINE HCL 0.25% 30ML VIAL As Ordered ONE; +ISOVUE-M 300 61% 15ML VIAL As Ordered ONE; +LIDOCAINE 1% SDV 30ML VIAL As Ordered ONE
== END ==
LOC: M PAIN 12:30
PROVIDERS: ATTEND Anesthesiology
DX: M47.816 Spondylosis without myelopathy or radiculopathy, lumbar region (principal); K21.9 Gastro-esophageal reflux disease without esophagitis; N52.9 Male erectile dysfunction, unspecified; M72.2 Plantar fascial fibromatosis; F32.A Depression, unspecified; F41.9 Anxiety disorder, unspecified; G47.30 Sleep apnea, unspecified; D55.0 Anemia due to glucose-6-phosphate dehydrogenase [G6PD] deficiency; Z79.891 Long term (current) use of opiate analgesic; Z79.899 Other long term (current) drug therapy; Z88.2 Allergy status to sulfonamides; Z88.6 Allergy status to analgesic agent
CPT/HCPCS: 64493; 64494; Q9967

== ENCOUNTER → 2023-03-03 | Outpatient (CLI) | payer OTHER ==
[~2023-03-03] MED LIST changes: -BUPIVACAINE HCL 0.25% 30ML VIAL As Ordered ONE; -ISOVUE-M 300 61% 15ML VIAL As Ordered ONE; -LIDOCAINE 1% SDV 30ML VIAL As Ordered ONE
== END ==
LOC: M PAIN 15:15
PROVIDERS: ATTEND Nurse Practitioner Family
DX: M51.16 Intervertebral disc disorders with radiculopathy, lumbar region (principal); G89.29 Other chronic pain; K21.9 Gastro-esophageal reflux disease without esophagitis; G43.909 Migraine, unspecified, not intractable, without status migrainosus; I10 Essential (primary) hypertension; G47.30 Sleep apnea, unspecified; Z86.59 Personal history of other mental and behavioral disorders; Z88.2 Allergy status to sulfonamides; Z88.6 Allergy status to analgesic agent; Z79.899 Other long term (current) drug therapy

== ENCOUNTER → 2023-03-04 | Outpatient (CLI) | payer OTHER ==
[~2023-03-04] MED LIST changes: +ISOVUE-M 300 61% 15ML VIAL As Ordered ONE; +LIDOCAINE 1% SDV 30ML VIAL As Ordered ONE; +NORCO, ANEXSIA 5/325MG TABLET (HYDROcodone/ACETAMINOPHEN) As Ordered ONE; +diazePAM 5MG TABLET As Ordered ONE; +methylPREDNISolone SUSP 40MG/ML 1ML VIAL (DEPO MEDROL) As Ordered ONE
== END ==
LOC: M PAIN 13:00
PROVIDERS: ATTEND Anesthesiology
DX: M51.16 Intervertebral disc disorders with radiculopathy, lumbar region (principal); K21.9 Gastro-esophageal reflux disease without esophagitis; N52.9 Male erectile dysfunction, unspecified; M72.2 Plantar fascial fibromatosis; F32.A Depression, unspecified; F41.9 Anxiety disorder, unspecified; D64.9 Anemia, unspecified; G47.30 Sleep apnea, unspecified; Z88.2 Allergy status to sulfonamides; Z88.6 Allergy status to analgesic agent; Z79.899 Other long term (current) drug therapy
CPT/HCPCS: 62323; J1030; Q9967